=== PATIENT | male | born 1985 | race Hispanic/Latino ===

== ENCOUNTER 2018-09-06 07:16 | Day surgery (SDC) | payer OTHER ==
[2018-09-05 13:56] VITALS: BMI 28.2
[2018-09-06] MEDS ORDERED: Morphine 4 MG/ML VIAL ONE (09:17)
[2018-09-06] MEDS ORDERED: Fentanyl 100 MCG/2 ML VIAL ONE ×2 (09:17→10:15)
[2018-09-06] MEDS ORDERED: Ferric Subsulfate (ASTRINGYN) 8 ML VIAL ONE (09:48)
--- NOTE | 2018-09-06 11:55 | OP ---
DATE OF PROCEDURE: 09/06/2018 PREOPERATIVE DIAGNOSES: Chronic tonsillitis, recurrent tonsillitis, and obstructive tonsillar hypertrophy. POSTOPERATIVE DIAGNOSES: Chronic tonsillitis, recurrent tonsillitis, and obstructive tonsillar hypertrophy. PROCEDURE PERFORMED: Tonsillectomy over 12 years of age. DESCRIPTION OF PROCEDURE: After consent was obtained, the patient was identified, brought to the operating room, and placed on the operating table in the supine position. General endotracheal anesthesia and intravenous access was obtained and we proceeded with positioning the patient for oropharyngeal surgery. Oropharyngeal exposure was obtained with a Fuad-Faustino mouth gag after a head drape was placed and secured with a towel clip. The Fuad-Faustino mouth gag was then suspended from the Daniels tray and palatal elevation was achieved with a red rubber catheter. The right tonsil was addressed first. We used a curved Allis to grasp the tonsil and retract it medially as an anterior pillar incision was made with a #12 blade. The retrotonsillar fascial plane was then established and blunt dissection was performed with the suction cautery. Blood vessels were anticipated, identified, and cauterized as they were encountered. Ultimately, dissection was carried to the posterior tonsillar pillar mucosa which was incised hemostatically, as well as the base of tongue connection. The tonsil was then passed off as a specimen and bleeding points within the tonsillar bed were cauterized under direct visualization. We subsequently turned our attention to the contralateral side, where using a similar technique, a near identical procedure was performed. Again, the tonsil was grasped and retracted medially with a curved Allis as an anterior pillar incision was made with a #12 blade. The retrotonsillar fascial plane was established and while the anterior pillar was retracted medially, the hemostatic blunt dissection of the tonsil with a suction cautery was performed with blood vessels anticipated, identified, and cauterized as they were encountered. Again, dissection continued to the base of tongue and posterior tonsillar pillar mucosa which was incised in a hemostatic fashion. The tonsillar beds were then carefully inspected and bleeding points were identified and cauterized with a suction cautery. After this portion of the procedure, hemostasis was completely obtained. The patient's oral cavity was copiously irrigated with iced saline and subsequently suctioned. We then used the red rubber catheter to suction the gastric contents and the patient was subsequently aroused, awakened, and extubated without difficulty and transported to the recovery room in stable condition. There were no complications. Job ID: [id number]
[2018-09-06] MEDS ORDERED: PROPOFOL 200 MG/20 ML VIAL ONE (12:00)
[2018-09-06] MEDS ORDERED: Lidocaine 1% PF 5 ML VIAL ONE (12:00)
[2018-09-06] MEDS ORDERED: Dexamethasone 20 MG/5 ML VIAL ONE (12:00)
[2018-09-06] MEDS ORDERED: Ondansetron PF 4 MG/2 ML Vial ONE (12:00)
[2018-09-06] MEDS ORDERED: Ondansetron ODT 4 MG TAB ONE (12:09)
== END 2018-09-06 12:20 | disposition home or self-care (01) ==
LOC: SDC 07:16
PROVIDERS: ATTEND Specialist
PROC: 0CTPXZZ Resection of Tonsils, External Approach (ICD-10-PCS; principal; 2018-09-06)
DX: J03.91 Acute recurrent tonsillitis, unspecified (principal); J35.01 Chronic tonsillitis
CPT/HCPCS: 88304; J0131; J1100; J2001; J2270; J2405; J2704; J3010; Q0162